=== PATIENT | female | born 1970 | race Caucasian/White ===

== ENCOUNTER → 2017-07-17 | Outpatient (CLI) | payer BC | LOC: MC.RAD 04-25 09:00 | DX: Z12.31 Encounter for screening mammogram for malignant neoplasm of breast (principal); N63.32 Unspecified lump in axillary tail of the left breast ==

== ENCOUNTER → 2017-07-27 | Outpatient (CLI) | payer BC | LOC: MC.RAD 12:46 | DX: N63.32 Unspecified lump in axillary tail of the left breast (principal) ==

== ENCOUNTER → 2018-02-05 | Outpatient (CLI) | payer BC | LOC: MC.RAD 01-29 14:15 | DX: R59.0 Localized enlarged lymph nodes (principal) ==

== ENCOUNTER → 2018-10-12 | Outpatient (CLI) | payer BC | LOC: MC.RAD 09:31 | DX: Z12.31 Encounter for screening mammogram for malignant neoplasm of breast (principal) ==

== ENCOUNTER → 2019-12-24 | Outpatient (CLI) | payer BC | LOC: MC.RAD 11:29 | DX: Z12.31 Encounter for screening mammogram for malignant neoplasm of breast (principal) ==